=== PATIENT | female | born 1985 | race Caucasian/White ===

== ENCOUNTER 2019-04-15 21:44 | Emergency (ER) | payer BC, MEDICAID ==
[~2019-04-15] VITALS: Ht 172.7 cm; Wt 72.7 kg
[2019-04-15 21:48] VITALS: BP 116/81
== END 2019-04-15 23:26 | disposition home or self-care (01) ==
LOC: ER 21:45
DX: S51.012A Laceration without foreign body of left elbow, initial encounter (principal); S50.02XA Contusion of left elbow, initial encounter; W01.0XXA Fall on same level from slipping, tripping and stumbling without subsequent striking against object, initial encounter; Y93.89 Activity, other specified; Y92.89 Other specified places as the place of occurrence of the external cause; Y99.8 Other external cause status
CPT/HCPCS: 10140; 12001; 73080; 99284